=== PATIENT | female | born 1970 | race Caucasian/White ===

== ENCOUNTER 2016-11-11 18:07 | Emergency (ER) | payer OTHER ==
[~2016-11-11] VITALS: Ht 175.3 cm; Wt 145.1 kg
[~2016-11-11 18:07] MED LIST: AUGMENTIN875 M1 PO; CITALOPRAM HBR10 MG PO; IBUPROFEN800 MG PO; PRINIVIL5 MG PO; ZYRTEC10 M2 PO
[2016-11-11 19:31] LABS: URINE SOURCE CLEAN CATCH
[2016-11-11 19:33] LABS: URINE APPEARANCE CLEAR; URINE BILIRUBIN NEG (NEG); URINE BLOOD TRACE-INTACT (NEG); URINE COLOR YELLOW; URINE GLUCOSE NEG (NORM); URINE KETONE NEG (NEG); URINE LEUKOCYTE ESTERASE 2+ (NEG); URINE NITRATE NEG (NEG); URINE PROTEIN NEG (NEG); URINE UROBILINOGEN 0.2 MG/DL (NORM)
[2016-11-11 19:34] LABS: MICRO INDICATED? YES
[2016-11-11 19:36] LABS: URINE BACTERIA 1+ (NEG); URINE MUCUS PRESENT; URINE SQUAMOUS EPITHELIAL CELL OCCAS /[HPF]; URINE TRANSITIONAL EPI CELLS FEW /[HPF]
== END 2016-11-11 20:34 | disposition home or self-care (01) ==
LOC: SED 18:07
PROVIDERS: Emergency Medicine
DX: N30.00 Acute cystitis without hematuria (principal); I10 Essential (primary) hypertension; Z88.8 Allergy status to other drugs, medicaments and biological substances
CPT/HCPCS: 81003; 99283